=== PATIENT | male | born 1955 | race Caucasian/White ===

== ENCOUNTER 2020-08-05 03:33 | Inpatient (IN) | payer OTHER ==
[~2020-08-05] VITALS: Ht 160 cm; Wt 89.8 kg
[2020-08-05] VITALS (41 sets, daily range): BP systolic 75–167; BP diastolic 53–90
[2020-08-05 08:21] LABS: HCO3 15.5 mmol/L (22.0-26.0); PCO2 37.1 mmHg (35.0-45.0); PO2 82.7 mmHg (80.0-100.0); sO2 94.4 % (92.0-98.0)
[2020-08-05] MEDS ORDERED: NORVASC 2.5 MG2.5 M1 PO (09:35)
[2020-08-05] MEDS ORDERED: ATIVAN0.5 M1 PO (09:35)
[2020-08-05] MEDS ORDERED: CHILDREN'S ASPI81 MG PO (09:35)
[2020-08-05] MEDS ORDERED: BASAGLAR K100 UNIT/1 SUBQ (09:36)
[2020-08-05] MEDS ORDERED: LIPITOR20 MG PO (09:36)
[2020-08-05] MEDS ORDERED: BISACODYL10 MG RECTAL (09:37)
[2020-08-05] MEDS ORDERED: TUMS200 MG PO (09:38)
[2020-08-05] MEDS ORDERED: FLOMAX0.4 MG PO (09:42)
[2020-08-05] MEDS ORDERED: NEURONTIN 300M300 M2 PO (09:42)
[2020-08-05] MEDS ORDERED: LISINOPRIL10 MG PO (09:43)
[2020-08-05] MEDS ORDERED: IRON325 M1 PO (09:43)
[2020-08-05] MEDS ORDERED: MILK OF MA400 MG/5 M PO (09:44)
[2020-08-05] MEDS ORDERED: UNICOMPLEX M TA1 TA1 PO (09:44)
[2020-08-05] MEDS ORDERED: METFORMIN HCL500 M3 PO (09:44)
[2020-08-05] MEDS ORDERED: NORCO 5-325 TA1 EAC2 PO (09:45)
[2020-08-05] MEDS ORDERED: NOVOLOG FL100 UNIT/M SUBQ (09:45)
[2020-08-05] MEDS ORDERED: SAPHRIS5 MG PO (09:46)
[2020-08-05] MEDS ORDERED: PRILOSEC OTC20 MG PO (09:46)
[2020-08-05] MEDS ORDERED: MIRALAX17 G1 PO (09:46)
[2020-08-05] MEDS ORDERED: VITAMIN C500 M1 PO (09:47)
[2020-08-05] MEDS ORDERED: SENNO8.6 MG PO (09:47)
[2020-08-05] MEDS ORDERED: TYLENOL325 MG PO (09:47)
[2020-08-05] MEDS ORDERED: WELLBUTRIN XL150 MG PO (09:48)
[2020-08-05] MEDS ORDERED: AAA-MED REC COMPLETE PO (09:49)
[2020-08-05 10:03] LABS: HEMATOCRIT 41.4 % (42.0-52.0); HEMOGLOBIN 13.2 gm/dL (14.0-18.0); MCHC 31.9 g/dL (28.0-37.0); MCV 90.9 fL (80.0-100.0); PLATELET COUNT 342 thou/uL (150-400); RBC 4.55 mil/uL (4.50-6.00); RDW 13.7 % (10.5-14.5); WBC 33.1 thou/uL (4.0-11.0)
[2020-08-05 10:24] LABS: ALBUMIN 3.4 g/dL (3.4-5.0); CALCIUM 8.4 mg/dL (8.5-10.1); CREATININE 1.8 mg/dL (0.7-1.3); TOTAL BILIRUBIN 0.4 mg/dL (0.2-1.0); TOTAL PROTEIN 6.9 g/dL (6.4-8.2)
[2020-08-05 10:30] LABS: TROPONIN-I 9.53 ng/mL (<0.06)
[2020-08-05 10:31] LABS: POTASSIUM 6.4 mmol/L (3.5-5.1)
[2020-08-05 10:41] LABS: ABSOLUTE NEUTROPHILS 31.1 thou/uL (1.4-8.2); ANISOCYTOSIS 1+; OVALOCYTES 1+
[2020-08-05 11:28] LABS: URINE BILIRUBIN NEGATIVE (Negative); URINE BLOOD 3+ (Negative); URINE CLARITY CLEAR; URINE COLOR YELLOW; URINE GLUCOSE-RANDOM* 3+ (Negative); URINE KETONES NEGATIVE (Negative); URINE LEUKOCYTES-REFLEX NEGATIVE (Negative); URINE NITRITE-REFLEX NEGATIVE (Negative); URINE PROTEIN (DIPSTICK) NEGATIVE (Negative); URINE SPECIFIC GRAVITY 1.015 (1.005-1.035); URINE UROBILINOGEN 0.2 E.U./dl (0.2-1.0)
[2020-08-05 11:54] LABS: SQUAMOUS 0-3 Few /LPF (0-3)
[2020-08-05 11:55] LABS: BACTERIA-REFLEX 1-9 Few /HPF (None Seen); CASTS None Seen /LPF (None Seen); CRYSTALS None Seen /LPF (None Seen); URINE WBC-REFLEX 0-5 Rare /HPF (0-5)
[2020-08-05 13:38] LABS: HEMATOCRIT 38.3 % (42.0-52.0); HEMOGLOBIN 12.3 gm/dL (14.0-18.0); MCHC 32.1 g/dL (28.0-37.0); MCV 90.3 fL (80.0-100.0); RBC 4.24 mil/uL (4.50-6.00); RDW 13.7 % (10.5-14.5); WBC 29.9 thou/uL (4.0-11.0)
[2020-08-05 13:55] LABS: APTT 26.5 Seconds (24.5-32.8); INR 1.1; PROTIME 11.3 Seconds (9.3-11.4)
[2020-08-05 13:57] LABS: CALCIUM 8.2 mg/dL (8.5-10.1); CREATININE 1.9 mg/dL (0.7-1.3)
[2020-08-05 14:01] LABS: POTASSIUM 6.7 mmol/L (3.5-5.1)
--- NOTE | 2020-08-05 15:32 | NUR ---
chart review. unable to visit with tono finley on vent. he from [facility]. cm tried calling sister ivan, no answer. left message requesting call back. cm spoke with school child care attendant xiao at [facility] " came to them from another facility in 2018, had to have both legs with amputation. he is able to use slide board and transfer in and out of wheel chair. able to feed him self. incont of urine at times. a & o x 3, pleasant and dx schizophrenia controlled with medication. no behavior. he has low bed with mattress next to bed rt he tries get in and out of bed him self. has support from sister and friend that bring him food sometimes. no longer drinks ethol. he was auguring with his roommate about a candy bar and then he did just collapse. let us know with updates"/xiao. will cont following as needed for dc needs. no dpoa listed on his chart in [facility], he "able to make his needs know"/xiao.
--- NOTE | 2020-08-05 18:47 | NUR ---
PT IS A TRANSFER FROM AN ACUTE FACILITY. PT ARRIVED AT 0815 AND PT WAS INTUBATED AND ON SEDATION AT TIME OF ARRIVAL. SEDATION TURNED OFF FOR ASSESMENT. PT A GCS OF 3 BUT PT STARTED GETTING TACHYPNIC AND TACHYCARDIC. HOSPITALIST AND CONSULTS NOTIFIED OF PT ARRIVAL. PT FAMILY UPDATED ON PT CONDITION. ORDERS ACKNOWLEDGED AND CARRIED OUT. PT RESTING CURRENTLY WITH EYES CLOSED.
[2020-08-06] VITALS (138 sets, daily range): BP systolic 79–122; BP diastolic 54–78
[2020-08-06 04:30] LABS: ABSOLUTE NEUTROPHILS 14.1 thou/uL (1.4-8.2); BASOPHILS 0.3 % (0.0-2.0); EOSINOPHILS 2.6 % (0.0-3.0); HEMATOCRIT 30.9 % (42.0-52.0); HEMOGLOBIN 10.4 gm/dL (14.0-18.0); LYMPHOCYTES 11.9 % (24.0-44.0); MCH 30.1 pg (26.0-34.0); MCHC 33.6 g/dL (28.0-37.0); MCV 89.7 fL (80.0-100.0); MONOCYTES 6.3 % (1.0-8.0); PLATELET COUNT 232 thou/uL (150-400); POLYS 78.9 % (36.0-66.0); RBC 3.45 mil/uL (4.50-6.00); RDW 13.9 % (10.5-14.5); WBC 17.9 thou/uL (4.0-11.0)
[2020-08-06 04:45] LABS: CALCIUM 7.9 mg/dL (8.5-10.1); CREATININE 1.5 mg/dL (0.7-1.3); MAGNESIUM 1.5 mg/dL (1.8-2.4)
[2020-08-06 04:46] LABS: POTASSIUM 3.8 mmol/L (3.5-5.1)
--- NOTE | 2020-08-06 05:06 | NUR ---
PATIENT'S BP WENT HYPOTENSIVE LAST NIGHT WITH A MAP OF 59. PATIENT PLACED ON LEVOPHED. PATIENT'S BP RECOVERED AND PATIENT HAS BEEN WEANING OFF THE LEVOPHED THROUGH THE NIGHT. PATIENT STARTED THE EVENING WITH A LOW GRADE FEVER. AT MIDNIGHT IT WAS WITHIN NORMAL RANGES. HOWEVER THIS MORNING PATIENT HAD A LOW TEMP. WARM BLANKETS AND A BEAR HUGGER PLACED ON PATIENT. PATIENT'S THERMOSTAT TURNED UP AND PATIENT'S FAN TURNED OFF.
--- NOTE | 2020-08-06 10:19 | NUR ---
Nutrition: REC initiate enteral feeds. Vital HP 5 cartons/day via gravity drip.
--- NOTE | 2020-08-06 14:55 | NUR ---
he remains on vent, cm visited with his sister ivan yesterday via phone call. no anticipated dc over the weekend. will cont following as needed for dc needs.
--- NOTE | 2020-08-06 17:17 | NUR ---
PATIENT IS NOT PROGRESSING TOWARDS PLAN OF CARE. MTN CAME BY TODAY FOR AN UPDATE ON PATIENT STATUS. PATIENT PUPILS FIXED 5MM. SEDATION OFF AT 0915. PATIENT DOES NOT OVERBREATHE VENTILATOR SETTING. NO COUGH OR GAG. LEVO 2MCG/MIN. SPOKE WITH SISTER GALA ARANA TODAY. GAVE HER AN UPDATE ONE PATIENTS CASE.
[2020-08-07] VITALS (80 sets, daily range): BP systolic 73–143; BP diastolic 37–81
[2020-08-07 05:40] LABS: HEMATOCRIT 30.2 % (42.0-52.0); HEMOGLOBIN 9.9 gm/dL (14.0-18.0); MCH 29.6 pg (26.0-34.0); MCHC 32.7 g/dL (28.0-37.0); MCV 90.5 fL (80.0-100.0); RBC 3.33 mil/uL (4.50-6.00); WBC 21.4 thou/uL (4.0-11.0)
[2020-08-07 05:54] LABS: CREATININE 1.6 mg/dL (0.7-1.3); POTASSIUM 3.5 mmol/L (3.5-5.1)
[2020-08-07 10:02] LABS: BE(vivo) 8.3 mmol/L (-2 to +3); HCO3 38.7 mmol/L (22.0-26.0); sO2 57.7 % (92.0-98.0)
[2020-08-07 10:03] LABS: PCO2 94.9 mmHg (35.0-45.0); PO2 37.5 mmHg (80.0-100.0); pH 7.228 (7.360-7.450)
--- NOTE | 2020-08-07 10:42 | NUR ---
MTN ARRIVAL THIS MORNING AT 0800. NEUROLOGY CONSULTED. DR BARRAZA ARRIVAL AT 0900. PREFORMS BRAIN EVALUATION TESTING. FAMILY AT PATIENT BEDSIDE AT 1015. DR NEIL AT BED SIDE TALKING WITH FAMILY ABOUT NEXT STEPS FOR PLAN OF CARE. MTN MEETS WITH FAMILY AND HAS FAMILY DISCUSSION.
== END 2020-08-07 13:34 | DRG 871 ==
LOC: ICU 03:33
PROVIDERS: Hospitalist; Nurse Practitioner; ADMIT Hospitalist; ATTEND Hospitalist
PROC: 06HY33Z Insertion of Infusion Device into Lower Vein, Percutaneous Approach (ICD-10-PCS; principal; 2020-08-05)
PROC: 5A1945Z Respiratory Ventilation, 24-96 Consecutive Hours (ICD-10-PCS; principal; 2020-08-05)
DX: A41.9 Sepsis, unspecified organism (principal); J69.0 Pneumonitis due to inhalation of food and vomit; N17.0 Acute kidney failure with tubular necrosis; G93.1 Anoxic brain damage, not elsewhere classified; I46.9 Cardiac arrest, cause unspecified; Z20.828 Contact with and (suspected) exposure to other viral communicable diseases; I10 Essential (primary) hypertension; F41.9 Anxiety disorder, unspecified; E11.51 Type 2 diabetes mellitus with diabetic peripheral angiopathy without gangrene; Z66 Do not resuscitate; E78.5 Hyperlipidemia, unspecified; Z51.5 Encounter for palliative care; Z86.73 Personal history of transient ischemic attack (TIA), and cerebral infarction without residual deficits; Z89.512 Acquired absence of left leg below knee; Z89.612 Acquired absence of left leg above knee; Z89.611 Acquired absence of right leg above knee; Z87.891 Personal history of nicotine dependence; Z79.899 Other long term (current) drug therapy
CPT/HCPCS: 10078

== ENCOUNTER 2020-08-07 12:00 | Observation (INO) | payer OTHER ==
[2020-08-07] VITALS (47 sets, daily range): BP systolic 91–175; BP diastolic 53–97
[~2020-08-07 12:00] MED LIST: AAA-MED REC COMPLETE PO; ATIVAN0.5 M1 PO; BASAGLAR K100 UNIT/1 SUBQ; BISACODYL10 MG RECTAL; CHILDREN'S ASPI81 MG PO; FLOMAX0.4 MG PO; IRON325 M1 PO; LIPITOR20 MG PO; LISINOPRIL10 MG PO; METFORMIN HCL500 M3 PO; MILK OF MA400 MG/5 M PO; MIRALAX17 G1 PO; NEURONTIN 300M300 M2 PO; NORCO 5-325 TA1 EAC2 PO; NORVASC 2.5 MG2.5 M1 PO; NOVOLOG FL100 UNIT/M SUBQ; PRILOSEC OTC20 MG PO; SAPHRIS5 MG PO; SENNO8.6 MG PO; TUMS200 MG PO; TYLENOL325 MG PO; UNICOMPLEX M TA1 TA1 PO; VITAMIN C500 M1 PO; WELLBUTRIN XL150 MG PO
[2020-08-07 13:29] LABS: BE(vivo) 11.4 mmol/L (-2 to +3); HCO3 36.2 mmol/L (22.0-26.0); PCO2 48.3 mmHg (35.0-45.0); PO2 172.6 mmHg (80.0-100.0); pH 7.493 (7.360-7.450); sO2 99.3 % (92.0-98.0)
[2020-08-07 14:24] LABS: HEMATOCRIT 29.8 % (42.0-52.0); HEMOGLOBIN 9.8 gm/dL (14.0-18.0); MCH 29.7 pg (26.0-34.0); MCHC 32.8 g/dL (28.0-37.0); MCV 90.5 fL (80.0-100.0); PLATELET COUNT 213 thou/uL (150-400); RBC 3.29 mil/uL (4.50-6.00); RDW 14.1 % (10.5-14.5); WBC 22.4 thou/uL (4.0-11.0)
[2020-08-07 14:46] LABS: CREATININE 1.5 mg/dL (0.7-1.3); POTASSIUM 3.1 mmol/L (3.5-5.1)
[2020-08-07 15:03] LABS: DIRECT BILIRUBIN 0.2 mg/dL (<0.1-0.2); MAGNESIUM 1.4 mg/dL (1.8-2.4); PHOSPHORUS 2.4 mg/dL (2.5-4.9); TOTAL BILIRUBIN 0.4 mg/dL (0.2-1.0); TOTAL PROTEIN 5.4 g/dL (6.4-8.2)
[2020-08-07 15:04] LABS: TROPONIN-I 3.04 ng/mL (<0.06)
[2020-08-07 15:22] LABS: URINE BILIRUBIN NEGATIVE (Negative); URINE BLOOD 2+ (Negative); URINE CLARITY CLEAR; URINE COLOR YELLOW; URINE GLUCOSE-RANDOM* NEGATIVE (Negative); URINE KETONES NEGATIVE (Negative); URINE LEUKOCYTES NEGATIVE (Negative); URINE NITRITE NEGATIVE (Negative); URINE PROTEIN (DIPSTICK) TRACE (Negative); URINE UROBILINOGEN 0.2 E.U./dl (0.2-1.0)
[2020-08-07 15:36] LABS: FIBRINOGEN 499.9 mg/dL (210-360); INR 1.2; PROTIME 12.1 Seconds (9.3-11.4)
[2020-08-07 15:37] LABS: BACTERIA None Seen /HPF (None Seen); CASTS None Seen /LPF (None Seen); CRYSTALS None Seen /LPF (None Seen); SQUAMOUS None Seen /LPF (0-3); URINE RBC 0-2 Rare /HPF (0-2); URINE WBC 0-5 Rare /HPF (0-5)
[2020-08-07 15:42] LABS: APTT 27.7 Seconds (24.5-32.8)
[2020-08-07 16:07] LABS: ABSOLUTE NEUTROPHILS 18.4 thou/uL (1.4-8.2); METAMYELOCYTES 1 %
--- NOTE | 2020-08-07 18:35 | NUR ---
MTN TAKES OVER CARE AT 1340. REPLACING MG AND KCL. HEPARIN GTT STOPPED. LEVOPHED WEANED OFF. LIVER BIOPSY COMPLETED. AWAITING RESULTS.
[2020-08-07 20:40] LABS: BE(vivo) 6.8 mmol/L (-2 to +3); HCO3 29.5 mmol/L (22.0-26.0); PO2 158.5 mmHg (80.0-100.0); pH 7.544 (7.360-7.450); sO2 99.2 % (92.0-98.0)
[2020-08-07 21:39] LABS: HEMATOCRIT 28.8 % (42.0-52.0); HEMOGLOBIN 9.5 gm/dL (14.0-18.0); MCH 29.9 pg (26.0-34.0); MCHC 33.1 g/dL (28.0-37.0); MCV 90.3 fL (80.0-100.0); PLATELET COUNT 189 thou/uL (150-400); RBC 3.19 mil/uL (4.50-6.00); RDW 14.3 % (10.5-14.5); WBC 21.6 thou/uL (4.0-11.0)
[2020-08-07 21:54] LABS: APTT 30.3 Seconds (24.5-32.8); FIBRINOGEN 555.5 mg/dL (210-360); INR 1.2; PROTIME 12.1 Seconds (9.3-11.4)
[2020-08-07 22:01] LABS: CALCIUM 8.2 mg/dL (8.5-10.1); CREATININE 1.7 mg/dL (0.7-1.3); POTASSIUM 3.5 mmol/L (3.5-5.1)
[2020-08-07 22:13] LABS: ABSOLUTE NEUTROPHILS 20.1 thou/uL (1.4-8.2)
[2020-08-07 22:18] LABS: DIRECT BILIRUBIN 0.2 mg/dL (<0.1-0.2); PHOSPHORUS 2.8 mg/dL (2.5-4.9); TOTAL BILIRUBIN 0.5 mg/dL (0.2-1.0); TOTAL PROTEIN 5.4 g/dL (6.4-8.2)
[2020-08-07 22:20] LABS: TROPONIN-I 3.16 ng/mL (<0.06)
[2020-08-08] VITALS: BP 122/71
[2020-08-08 02:00] VITALS: BP 127/70
[2020-08-08 02:43] LABS: BE(vivo) 5.2 mmol/L (-2 to +3); HCO3 29.1 mmol/L (22.0-26.0); PCO2 40.1 mmHg (35.0-45.0); pH 7.479 (7.360-7.450); sO2 97.5 % (92.0-98.0)
[2020-08-08 02:47] LABS: ABSOLUTE NEUTROPHILS 22.1 thou/uL (1.4-8.2); BASOPHILS 0.1 % (0.0-2.0); HEMATOCRIT 29.3 % (42.0-52.0); HEMOGLOBIN 9.6 gm/dL (14.0-18.0); LYMPHOCYTES 1.8 % (24.0-44.0); MCH 29.6 pg (26.0-34.0); MCHC 32.7 g/dL (28.0-37.0); MCV 90.6 fL (80.0-100.0); PLATELET COUNT 181 thou/uL (150-400); POLYS 96.1 % (36.0-66.0); RBC 3.23 mil/uL (4.50-6.00); RDW 13.8 % (10.5-14.5)
[2020-08-08 04:00] VITALS: BP 126/70
[2020-08-08 05:55] LABS: APTT 30.5 Seconds (24.5-32.8); INR 1.2; PROTIME 11.9 Seconds (9.3-11.4)
[2020-08-08 06:07] LABS: CALCIUM 7.9 mg/dL (8.5-10.1); CREATININE 1.6 mg/dL (0.7-1.3)
[2020-08-08 06:22] LABS: FIBRINOGEN 778.5 mg/dL (210-360)
[2020-08-08 06:23] LABS: DIRECT BILIRUBIN 0.3 mg/dL (<0.1-0.2); MAGNESIUM 1.9 mg/dL (1.8-2.4); PHOSPHORUS 3.2 mg/dL (2.5-4.9); TOTAL BILIRUBIN 0.7 mg/dL (0.2-1.0); TOTAL PROTEIN 5.4 g/dL (6.4-8.2)
[2020-08-08 06:24] LABS: TROPONIN-I 2.32 ng/mL (<0.06)
[2020-08-08 08:45] LABS: HEMATOCRIT 27.9 % (42.0-52.0); HEMOGLOBIN 9.1 gm/dL (14.0-18.0); MCH 29.7 pg (26.0-34.0); MCHC 32.6 g/dL (28.0-37.0); MCV 91.2 fL (80.0-100.0); PLATELET COUNT 162 thou/uL (150-400); RBC 3.06 mil/uL (4.50-6.00); RDW 13.9 % (10.5-14.5); WBC 23.4 thou/uL (4.0-11.0)
[2020-08-08 09:16] LABS: BE(vivo) 4.8 mmol/L (-2 to +3); PCO2 47.9 mmHg (35.0-45.0); PO2 105.2 mmHg (80.0-100.0); pH 7.415 (7.360-7.450); sO2 97.8 % (92.0-98.0)
[2020-08-08 09:39] LABS: INR 1.2; PROTIME 12.3 Seconds (9.3-11.4)
[2020-08-08 09:44] LABS: FIBRINOGEN 747.7 mg/dL (210-360)
[2020-08-08 11:14] LABS: URINE BILIRUBIN NEGATIVE (Negative); URINE BLOOD 3+ (Negative); URINE CLARITY CLEAR; URINE COLOR YELLOW; URINE GLUCOSE-RANDOM* 3+ (Negative); URINE KETONES NEGATIVE (Negative); URINE LEUKOCYTES NEGATIVE (Negative); URINE NITRITE NEGATIVE (Negative); URINE PROTEIN (DIPSTICK) TRACE (Negative); URINE UROBILINOGEN 0.2 E.U./dl (0.2-1.0)
[2020-08-08 11:29] LABS: CASTS None Seen /LPF (None Seen); CRYSTALS None Seen /LPF (None Seen); SQUAMOUS None Seen /LPF (0-3); URINE RBC 0-2 Rare /HPF (0-2)
[2020-08-08 11:30] LABS: BACTERIA 1-9 Few /HPF (None Seen); URINE WBC 0-5 Rare /HPF (0-5)
[2020-08-08 13:45] LABS: HEMOGLOBIN 8.3 gm/dL (14.0-18.0); MCH 29.8 pg (26.0-34.0); MCV 90.4 fL (80.0-100.0); PLATELET COUNT 150 thou/uL (150-400); RBC 2.77 mil/uL (4.50-6.00); RDW 14.2 % (10.5-14.5); WBC 22.7 thou/uL (4.0-11.0)
[2020-08-08 13:58] LABS: APTT 37.1 Seconds (24.5-32.8); INR 1.2; PROTIME 12.7 Seconds (9.3-11.4)
[2020-08-08 13:58] LABS: ABSOLUTE NEUTROPHILS 22.9 thou/uL (1.4-8.2)
[2020-08-08 14:00] LABS: ANISOCYTOSIS 1+
[2020-08-08 14:04] LABS: FIBRINOGEN 563.7 mg/dL (210-360)
[2020-08-08 14:10] LABS: ALBUMIN 2.1 g/dL (3.4-5.0); CALCIUM 8.2 mg/dL (8.5-10.1); CREATININE 1.6 mg/dL (0.7-1.3); DIRECT BILIRUBIN 0.1 mg/dL (<0.1-0.2); MAGNESIUM 2.5 mg/dL (1.8-2.4); PHOSPHORUS 2.1 mg/dL (2.5-4.9); TOTAL BILIRUBIN 0.5 mg/dL (0.2-1.0); TOTAL PROTEIN 5.3 g/dL (6.4-8.2)
[2020-08-08 14:16] LABS: POTASSIUM 2.4 mmol/L (3.5-5.1); TROPONIN-I 1.32 ng/mL (<0.06)
[2020-08-08 14:44] LABS: ABSOLUTE NEUTROPHILS 21.8 thou/uL (1.4-8.2)
[2020-08-08 16:23] LABS: BE(vivo) 2.4 mmol/L (-2 to +3); HCO3 27.3 mmol/L (22.0-26.0); PCO2 43.4 mmHg (35.0-45.0); PO2 98.9 mmHg (80.0-100.0); pH 7.416 (7.360-7.450); sO2 97.6 % (92.0-98.0)
== END 2020-08-08 16:00 ==
LOC: ICU 12:00 → ICUDONOR 12:42 → ICU 08-08 16:00
PROVIDERS: Hospitalist; Nurse Practitioner Family
DX: A41.9 Sepsis, unspecified organism; N17.9 Acute kidney failure, unspecified; G93.40 Encephalopathy, unspecified; E11.9 Type 2 diabetes mellitus without complications; E78.5 Hyperlipidemia, unspecified; I46.9 Cardiac arrest, cause unspecified; F41.9 Anxiety disorder, unspecified; F25.9 Schizoaffective disorder, unspecified; G92 Toxic encephalopathy; Z86.73 Personal history of transient ischemic attack (TIA), and cerebral infarction without residual deficits; Z98.890 Other specified postprocedural states
CPT/HCPCS: 50101; 50554; 57103; 62110; 62900